=== PATIENT | female | born 1985 | race Caucasian/White ===

== ENCOUNTER 2016-08-24 23:55 | Emergency (ER) | payer OTHER ==
[~2016-08-24] VITALS: Ht 165.1 cm; Wt 81.6 kg
[~2016-08-24 23:55] MED LIST: AMOXIL 875 MG875 MG PO; BUPROPION HYDR150 MG PO; CIPRO500 M1 PO; GUAIFENESIN-COD10 ML PO; HYDROXYZINE PAM25 MG PO; LIDODERM 5% PAT1 PAT PO; MAGIC MOUTH WASH PO; PANTOPRAZOLE SO40 MG PO; SUMATRIPTAN SU100 MG PO; TRAMADOL HCL50 M1 PO; TRAMADOL HCL50 MG PO; TRAMADOL50 MG PO; TRIMETHOBENZAM300 M1 PO; ULTRAM(MONOGRAP50 MG PO; VALTREX1000 MG PO; VICODIN5-300 PO; VOLTAREN75 MG PO; ZITHROMAX250 M2 PO
--- NOTE | 2016-08-25 00:04 | ED INFLUENZA/URI COMPLAINT ---
History of Present Illness General Chief Complaint: Sore Throat, Dental Pain Stated Complaint: SORE THROAT,"I FEEL LIKE I'M GETTING A BAD COLD" Source: patient Exam Limitations: no limitations Vital Signs & Intake/Output Vital Signs & Intake/Output Vital Signs Date Time Temp Pulse Resp B/P B/P Pulse O2 O2 Flow FiO2 Mean Ox Delivery Rate 08/25 0021 97.0 88 16 130/61 100 Allergies Coded Allergies: gluten (UPSET GI 01/16/16) MDX - Lactose (Lactose) (INTOLERANT 01/16/16) MDX - Nsaid (NSAID) (GI UPSET 01/16/16) Reconcile Medications Amoxicillin (Amoxil 875 MG Tablets) 875 MG TAB 1 TAB PO BID DENTAL Amoxicillin/Potassium Clav (Augmentin 875-125 Tablet) 875 MG-125 MG TABLET 1 TAB PO BID SINUSITIS START ON MONDAY IF YOU STILL HAVE SYMPTOMS Azithromycin (Zithromax) 250 MG TABLET 1 DP PO AD URI 2 the first day followed by 1 for days 2-5 Azithromycin (Zithromax) 250 MG TABLET 1 DP PO AD URI 2 the first day followed by 1 for days 2-5 Benzonatate (Tessalon Perle) 100 MG CAPSULE 1-2 CAP PO TID PRN COUGH Bupropion Hydrochloride [address] 1 TAB PO DAILY DEPRESSION (Reported) Ciprofloxacin HCl (Cipro) 500 MG TABLET 1 TAB PO BID UTI Diclofenac Sodium (Voltaren) 75 MG ECT 1 TAB PO BID PRN ABDOMINAL PAIN HYDROCODONE/ACETAMINOPHEN (Hydrocodon-Acetaminophen 5-325) 1 TAB TAB 1 TAB PO Q6H PRN pain Hydroxyzine Pamoate (Hydroxyzine Larisa) 25 MG CAPSULE 1-2 CAP PO QPM PRN SLEEP (Reported) Lidocaine HCl (Lidoderm Patch) 5 % PAT 1 TAB PO PRN PRN PAIN (Reported) Loratadine (Claritin) 10 MG TABLET 1 TAB PO DAILY RUNNY NOSE [MAGIC MOUTH WASH] 10 ML LIQUID 10 ML PO TID MOUTH PAIN SWISH AND SWALLOW Pantoprazole Sodium 40 MG TABLET.DR 1 TAB PO DAILY AC GASTRITIS (Reported) Robitussin AC (Guaifenesin-Codeine Syrup) 10 ML LIQUID 10 ML PO Q6HR PRN COUGH Robitussin AC (Guaifenesin-Codeine Syrup) 200 MG-20 MG/10 ML LIQUID 10 ML PO Q6HR PRN COUGH Sumatriptan Succinate 100 MG TABLET 1 TAB PO PRN PRN MIGRAINES (Reported) Tramadol HCl 50 MG TABLET 1-2 TAB PO Q6P PRN pain Tramadol HCl (Ultram) 50 MG TAB 1-2 TAB PO TID PRN PAIN THIRTY...[id number] TRAMADOL HCL (Tramadol) 50 MG TABLET 1 TAB PO Q4-6 PRN PAIN Valacyclovir HCl (Valtrex) 1,000 MG TABLET 2 TAB PO BID HERPES SIMPLEX VIRUS Triage Nurses Notes Reviewed? yes Onset: Gradual Duration: day(s): Timing: recent history Severity: mild Prior Episodes/Possible Cause: occassional episodes Modifying Factors: Improves With: rest. Associated Symptoms: cough, nasal congestion, nasal drainage, sinus infection, sore throat HPI: 31 yo woman in prior good health with 1 day history of cough, runny nose, sore throat without wheezing, shortness of breath, fever, phlegm. She is tolerating fluids, has no nausea, vomiting, diarrhea, shortness of breath. She is otherwise well. Past History Medical History Any Pertinent Medical History? see below for history Neurological: NONE EENT: NONE Cardiovascular: NONE Respiratory: NONE Gastrointestinal: GASTRITIS CELIAC DISEASE Hepatic: NONE Renal: NONE Musculoskeletal: chronic right knee pain Psychiatric: NONE Endocrine: NONE Blood Disorders: NONE Cancer(s): NONE NICKER/Reproductive: OVARIAN CYSTS History of CDIFF: No Tetanus Vaccine: 08/29/14 Surgical History Surgical History: , tubal ligation Psychosocial History What is your primary language Frisian Family History Hx Contributory? No Review of Systems Review of Systems Constitutional: Reports: no symptoms. EENTM: Reports: no symptoms. Respiratory: Reports: no symptoms. Cardiovascular: Reports: no symptoms. GI: Reports: no symptoms. Genitourinary: Reports: no symptoms. Musculoskeletal: Reports: no symptoms. Skin: Reports: no symptoms. Neurological/Psychological: Reports: no symptoms. Hematologic/Endocrine: Reports: no symptoms. Immunologic/Allergic: Reports: no symptoms. All Other Systems: Reviewed and Negative Physical Exam Physical Exam General Appearance: well developed/nourished, mild distress Head: atraumatic Eyes: Bilateral: normal appearance. Ears, Nose, Throat: rhinorrhea, mild oropharngeal erythema, no exudates. Neck: normal inspection, supple, full range of motion Respiratory: normal breath sounds, chest non-tender, no respiratory distress, quiet respiration, lungs clear Cardiovascular: regular rate/rhythm Gastrointestinal: normal bowel sounds, soft, non-tender, no organomegaly Back: normal inspection Extremities: normal inspection, normal capillary refill, normal range of motion, no edema Neurologic/Psych: no motor/sensory deficits, awake, alert, oriented x 3, normal gait Skin: intact, normal color, warm/dry Core Measures Severe Sepsis Present: No Septic Shock Present: No Progress Differential Diagnosis: otitis, pharyngitis, sinusitis Plan of Care: see below. Initial ED EKG: none Departure Departure Disposition: HOME OR SELF CARE Condition: Stable Clinical Impression Primary Impression: Sinusitis Secondary Impressions: URI (upper respiratory infection) Referrals: KIT MARSHALL APRN (PCP/Family) Departure Forms: Customer Survey General Discharge Information Prescriptions: Current Visit Scripts Benzonatate (Tessalon Perle) 1-2 CAP PO TID PRN COUGH #30 CAP Ref 1 Loratadine (Claritin) 1 TAB PO DAILY #30 TAB Amoxicillin/Potassium Clav (Augmentin 875-125 Tablet) 1 TAB PO BID #14 TAB START ON MONDAY IF YOU STILL HAVE SYMPTOMS Comments discussed at length with patient.... pt to start augmentin in 2 days if symptoms worsen or persist.
[2016-08-25 00:21] VITALS: BP 130/61
[2016-08-25] MEDS ORDERED: TESSALON PERLE100 M1 PO (00:32)
[2016-08-25] MEDS ORDERED: CLARITIN10 M1 PO (00:32)
[2016-08-25] MEDS ORDERED: AUGMENTIN 875-1 EACH PO (00:32)
== END 2016-08-25 00:34 ==
LOC: ERH 23:55
DX: J32.9 Chronic sinusitis, unspecified (principal); J06.9 Acute upper respiratory infection, unspecified

== ENCOUNTER 2016-08-30 19:27 | Emergency (ER) | payer OTHER ==
[~2016-08-30] VITALS: Ht 162.6 cm; Wt 81.6 kg
[~2016-08-30 19:27] MED LIST changes: +AUGMENTIN 875-1 EACH PO; +CLARITIN10 M1 PO; +TESSALON PERLE100 M1 PO
--- NOTE | 2016-08-30 21:25 | ED NECK/BACK PAIN COMPLAINT ---
History of Present Illness General Chief Complaint: Low Back Pain/Injury Stated Complaint: "LT SIDE BACK PAIN" Source: patient, old records Exam Limitations: no limitations Vital Signs & Intake/Output Vital Signs & Intake/Output Vital Signs Date Time Temp Pulse Resp B/P B/P Pulse O2 O2 Flow FiO2 Mean Ox Delivery Rate 08/30 2125 98.0 99 20 136/85 100 Room Air 08/30 1933 97.9 109 20 132/76 100 ED Intake and Output 08/31 0000 08/30 1200 Intake Total Output Total Balance Patient 180 lb Weight Allergies Coded Allergies: lactose (Mild, INTOLERANT 08/30/16) NSAIDS (Non-Steroidal Anti-Inflamma (Mild, GI UPSET 08/30/16) gluten (Mild, GI UPSET 08/30/16) Reconcile Medications Amoxicillin/Potassium Clav (Augmentin 875-125 Tablet) 875 MG-125 MG TABLET 1 TAB PO BID SINUSITIS START ON MONDAY IF YOU STILL HAVE SYMPTOMS Benzonatate (Tessalon Perle) 100 MG CAPSULE 1-2 CAP PO TID PRN COUGH Bupropion HCl (Bupropion HCl Sr) 100 MG TABLET.ER 1 TAB PO DAILY DEPRESSION ( Reported) Cholecalciferol (Vitamin D3) (Vitamin D) 1,000 UNIT TABLET 1 TAB PO DAILY SUPPLEMENT (Reported) Cyclobenzaprine HCl 10 MG TABLET 1 TAB PO Q8P PAIN OR SPASM Levonorgestrel (Mirena) 20 MCG/24 HOUR (5 YEARS) IUD CONTROL (Reported) Loratadine (Claritin) 10 MG TABLET 1 TAB PO DAILY RUNNY NOSE Oxycodone HCl/Acetaminophen (Percocet 5-325 MG Tablet) 5 MG-325 MG TABLET 1-2 TAB PO Q6P PRN PAIN Pantoprazole Sodium 40 MG TABLET.DR 1 TAB PO DAILY GI (Reported) Polycarbophil (Fiber) (Unknown Strength) TABLET (Unknown Dose) PO DAILY SUPPLEMENT (Reported) Sumatriptan Succinate (Imitrex) 50 MG TABLET 1 TAB PO AD PRN MIGRAINES ( Reported) Tramadol HCl 50 MG TABLET 1-2 TAB PO TIDPRN PAIN (Reported) Triage Note: PER PT CO L UPPER BACK PAIN SINCE LAST NIGHT, PER PT NO TRAUMA, DENIES CHANCE OF . TUBES TIED. HURTS TO BREATHE, PT HAS FOOD WITH HER INSTRUCTED NOT TO EAT BUT STATES I AM EATING ANYWAYS. Triage Nurses Notes Reviewed? yes : No Patient currently breastfeeds: No HPI: Patient presents with a sharp stabbing pain to her left flank area that started yesterday. The pain increased with movement. The pain occasionally radiates around to the front of her abdomen. There is no nausea or vomiting. There is no dysuria. There is no hematuria. The pain is 10 out of 10. There is no known trauma. Patient became concerned because she knows the kidneys in that area so she wants to make sure that everything was okay. Past History Travel History Traveled to [place] past 21 day No Medical History Any Pertinent Medical History? see below for history Neurological: NONE EENT: NONE Cardiovascular: NONE Respiratory: NONE Gastrointestinal: GASTRITIS CELIAC DISEASE Hepatic: NONE Renal: NONE Musculoskeletal: chronic right knee pain Psychiatric: NONE Endocrine: NONE Blood Disorders: NONE Cancer(s): NONE COUNCILMAN/Reproductive: OVARIAN CYSTS History of CDIFF: No Tetanus Vaccine: 08/29/14 Surgical History Surgical History: , tubal ligation Psychosocial History What is your primary language Citizen Of [place] Tobacco Use: Current Daily Use Daily Tobacco Use Amount/Type: => 5 Cigarettes daily ETOH Use: occasional use Illicit Drug Use: denies illicit drug use Family History Hx Contributory? No Review of Systems Review of Systems Constitutional: Reports: no symptoms. Ears, Nose, Throat, Mouth: Reports: no symptoms. Respiratory: Reports: no symptoms. Cardiovascular: Reports: no symptoms. Gastrointestinal/Abdominal: Reports: see HPI, abdominal pain. Musculoskeletal: Reports: see HPI, back pain. Skin: Reports: no symptoms. Neurological/Psychological: Reports: no symptoms. Physical Exam Physical Exam General Appearance: well developed/nourished, alert, awake, mild distress Head: atraumatic, normal appearance Eyes: Bilateral: PERRL, EOMI. Neck: normal inspection, supple, full range of motion Respiratory: normal breath sounds, chest non-tender, no respiratory distress, lungs clear Cardiovascular: regular rate/rhythm, normal peripheral pulses Gastrointestinal: normal bowel sounds, soft, non-tender, no organomegaly Back: CVA tenderness (L), muscle spasm Straight Leg Raising: Right: Negative. Left: Negative. Neurologic/Psych: no motor/sensory deficits, awake, alert, oriented x 3, normal gait, normal mood/affect Skin: NO RASH Progress Differential Diagnosis: herniated disc, myofascial strain, pyelo/UTI, T/L spine injury, ureterolithiasis Plan of Care: Orders Procedure Date/time Status URINE 08/30 2124 Complete URINALYSIS 08/30 2124 Complete Laboratory Tests 08/30/162133: Urine Color YEL, Urine Clarity CLEAR, Urine pH 7.0, Ur Specific Wray 1.015, Urine Protein NEG, Urine Ketones NEG, Urine Nitrite NEG, Urine Bilirubin NEG, Urine Urobilinogen 0.2, Ur Leukocyte Esterase NEG, Ur Microscopic EXAM NOT REQUIRED, Urine Hemoglobin NEG, Urine Glucose NEG, Urine Test NEGATIVE Departure Departure Disposition: HOME OR SELF CARE Condition: Stable Clinical Impression Primary Impression: Flank pain Referrals: KIT MARSHALL APRN (PCP/Family) Additional Instructions: USE MOIST HEAT TAKE MEDS NEEDED RETURN FOR ANY CONCERNS Departure Forms: Customer Survey General Discharge Information Prescriptions: Current Visit Scripts Cyclobenzaprine HCl 1 TAB PO Q8P #20 TAB Oxycodone HCl/Acetaminophen (Percocet 5-325 MG Tablet) 1-2 TAB PO Q6P PRN PAIN #20 TAB
[2016-08-30 21:26] VITALS: BP 136/85
[2016-08-30] MEDS ORDERED: CYCLOBENZAPRINE10 M1 PO (22:17)
[2016-08-30] MEDS ORDERED: PERCOCET 5-3251 EACH PO (22:17)
[2016-08-30] MEDS ORDERED: BUPROPION HCL100 M3 PO (22:20)
[2016-08-30] MEDS ORDERED: IMITREX50 M1 PO (22:21)
[2016-08-30] MEDS ORDERED: VITAMIN D1000 UNIT PO (22:21)
[2016-08-30] MEDS ORDERED: TRAMADOL HCL50 M1 PO (22:21)
[2016-08-30] MEDS ORDERED: PANTOPRAZOLE SO40 M1 PO (22:21)
[2016-08-30] MEDS ORDERED: FIBER625 MG PO (22:22)
[2016-08-30] MEDS ORDERED: MIRENA1 EACH (22:22)
== END 2016-08-30 22:35 ==
LOC: ERH 19:27
DX: R10.9 Unspecified abdominal pain (principal)
CPT/HCPCS: 81003; 81025